=== PATIENT | male | born 1945 | race Caucasian/White ===

== ENCOUNTER 2022-04-03 09:33 | Outpatient (RCR) | payer MEDICARE, BC, SELFPAY | END 2022-04-03 23:59 | disposition home or self-care (01) | PROVIDERS: PCP Family Medicine; Visit Provider Orthopaedic Surgery Sports Medicine | DX: S72.001D Fracture of unspecified part of neck of right femur, subsequent encounter for closed fracture with routine healing (principal); Z51.89 Encounter for other specified aftercare ==

== ENCOUNTER 2023-02-01 10:29 | Outpatient (CLI) | payer MEDICARE, BC, SELFPAY | END 2023-02-01 10:30 | disposition home or self-care (01) | PROVIDERS: PCP Family Medicine; Visit Provider Family Medicine | DX: I10 Essential (primary) hypertension (principal); R79.89 Other specified abnormal findings of blood chemistry; E03.9 Hypothyroidism, unspecified; I48.20 Chronic atrial fibrillation, unspecified; Z13.6 Encounter for screening for cardiovascular disorders | CPT/HCPCS: 80053; 80061; 84439; 84443 ==

== ENCOUNTER 2023-05-26 06:41 | Day surgery (SDC) | payer MEDICARE, BC, SELFPAY ==
[2023-05-26] VITALS (9 sets, daily range): BP systolic 119–137; BP diastolic 70–89; PULSE 59–65; RESP 16–18; TEMP 36.6; O2SAT 98; BMI 23.1
[2023-05-26] MEDS: BUPIVACAINE 0.25% 30 ML INJECTION (08:30)
--- NOTE | 2023-05-26 08:48 | P.GSOP_ITS ---
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 Wide local excision was performed in clinic pathology demonstrating positive deep margins for squamous cell carcinoma and lateral positive margins for basal cell carcinoma. Risks and benefits of repeat excision were discussed at length with the patient. Risks included, but were not limited to: Bleeding, infection, risk of damage to surrounding structures and possible need for additional procedures. All questions and concerns were addressed with patient agreeing to proceed. Procedure Description: After discussing the risks and benefits of the procedure, the patient signed i nformed consent.? The operative site was marked and the patient was brought to the operating room and placed on the operating table in supine position.? Care was taken to pad the patient's pressure points.?? The operative site was then prepped and draped in the usual sterile fashion.? A time-out was then performed. Local anesthetic was used to infiltrate the surgical field. An elliptical incision was made around the previously healed scar. The lesion was then dissected down to subcutaneous tissue and removed in its entirety. The specimen was marked with a short stitch superior and long stitch laterally. Hemostasis was assured with electrocautery. The incision was then closed in layers of interrupted 3-0 Vicryl and running 4-0 Monocryl subcuticular stitch. Steri- Strips were applied. The incision was 7 cm long. ? The patient tolerated the procedure well. Findings: Well-healed scar of the left temporal region, reexcised for margins. Anesthesia: local Surgeon: Geno Weir MD Estimated blood loss (mL): 2 Additional Specimen Information: Skin lesion of the left temporal. Condition: stable Disposition: same day
== END 2023-05-26 09:03 | disposition home or self-care (01) ==
PROVIDERS: PCP Family Medicine; Visit Provider Surgery
PROC: (CPT 11646; principal; 2023-05-26 08:00)
DX: C44.319 Basal cell carcinoma of skin of other parts of face (principal)
CPT/HCPCS: 11646; 12053; 88305; J0665

== ENCOUNTER 2024-03-06 08:17 | Outpatient (CLI) | payer MEDICARE, BC, SELFPAY ==
--- OUTSIDE RECORDS SUMMARY | 2024-03-23 10:12 | XMS_ITS | Clinical Summary ---
Author Organization [facility] Address [place], [place] [address] Care Team Providers Care Gathering Machine Setter Name Role Phone Galindo Palmer MD Primary Care Provider [phone] Allergies No known active allergies Medications Medication Sig Dispensed Refills Start Date End Date Status acetaminophen (TYLENOL EXTRA STRGTH) 500 mg tablet TAKE TWO TABLETS BY MOUTH EVERY SIX HOURS NEEDED (MAXIMUM DAILY DOSE 4000MG) 2 daily on average 01/01/2021 Active Eliquis 5 mg tablet Take 5 mg by mouth 2 times daily. 09/30/2021 Active levothyroxine (SYNTHROID) 75 mcg tablet Take 75 mcg by mouth once daily. 02/23/2023 Active hydroCHLOROthiazide (HCTZ) 25 mg tablet Take 50 mg by mouth once daily. 02/01/2023 Active Active Problems No known active problems Social History Tobacco Use Types Packs/Day Years Used Date Smoking Tobacco: Former Smokeless Tobacco: Never Tobacco Cessation:Counseling Given: Yes Alcohol Use Standard Drinks/Week Comments Yes 0 (1 standard drink = 0.6 oz pur e alcohol) occ Social Connections Answer Date Recorded Frequency of Communication with Friends and Fami ly Not on file 10/17/2021 Financial Resource Strain Answer Date R ecorded Difficulty of Paying Living Expenses Not on file 10/17/2021 Difficulty of Paying Living Expenses Not on file 10/17/2021 Sex and Gender Information Value Date Recorded Sex Assigned at Not on file Gender Identity Not on file Sexual Orientation Not on file Obstetrics History Last Filed Vital Signs Vital Sign Reading Time Taken Comments Blood Pressure 130/76 08/26/2023 3:01 PM HUMAN SERVICES CASE MANAGER Pulse 68 08/26/2023 3:01 PM HUMAN SERVICES CASE MANAGER Temperature 37.2 ??C (98.9 ??F) 11/07/2021 7:54 AM CS T Respiratory Rate 14 11/07/2021 7:54 AM HUMAN SERVICES CASE MANAGER Oxygen Saturation 97% 08/26/2023 3:01 PM HUMAN SERVICES CASE MANAGER Inhaled Oxygen Concentration - - Weight 81.6 kg (180 lb) 08/26/2023 3:01 PM HUMAN SERVICES CASE MANAGER Height 185.4 cm (6' 1) 08/26/2023 3:01 PM HUMAN SERVICES CASE MANAGER Body Mass Index 23.75 08/26/2023 3:01 PM HUMAN SERVICES CASE MANAGER Plan of Treatment Upcoming Encounters Date Type Department Care Team (Late st Contact Info) Description 03/28/2024 2:30 PM CDT Office Visit [facility] [place] [address] [place] [address] Cisco Beth MD [address] [place] [address] 04/03/2024 2:00 PM CDT Office Visit [facility] [address] [place] [address] Armando Sims DPM [address] [place] [address] Health Maintenance Due Date Last Done Comments Tdap 1955 Depression screening for age 12+ 1956 Hepatitis C screening for ag e 18-79 1962 Tetanus booster 1964 Zoster (shingles) series for age 50+ (1 of 2) 1994 Medicare Wellness for age 65+ 2009 Pneumococcal series for age 65+ (1 of 1 - PCV) 2009 Influenza for age 65+ 06/17/2024 BMI (ht and wt on same day) for age 18+ 08/26/2024 08/26/2023, 09/24/2021 COVID-19 vaccine series Completed 08/02/20, 03/04/2023, 07/28/2022, Additional history exists Advance Directives * Full Code (Latest Code Status on File) Date Activated Date Inactivated Comments 11/06/2021 2:07 PM 11/07/2021 12:56 PM Question Answer Comments Code Status Discussion: Not Discussed Care Teams Gathering Machine Setter Relationship Specialty Start Date End Date Galindo Palmer MD [address] [place] [phone] PCP - General Family Practice 03/11/21
== END 2024-03-06 08:18 | disposition home or self-care (01) ==
LOC: NFLDREF 03-23 10:09
PROVIDERS: PCP Family Medicine; Referring Provider Family Medicine; Visit Provider Family Medicine
DX: E03.9 Hypothyroidism, unspecified (principal); I10 Essential (primary) hypertension; D64.9 Anemia, unspecified; C61 Malignant neoplasm of prostate
CPT/HCPCS: 80053; 84443; G0103

== ENCOUNTER 2025-03-22 07:35 | Outpatient (CLI) | payer MEDICARE, BC, SELFPAY | END 2025-03-22 07:36 | disposition home or self-care (01) | LOC: NFLDREF 03-23 10:00 | PROVIDERS: PCP Family Medicine; Referring Provider Family Medicine; Visit Provider Family Medicine | DX: I10 Essential (primary) hypertension (principal); E03.9 Hypothyroidism, unspecified; I48.91 Unspecified atrial fibrillation; Z13.6 Encounter for screening for cardiovascular disorders | CPT/HCPCS: 80053; 80061; 84443 ==

== ENCOUNTER 2025-04-08 10:16 | Outpatient (CLI) | payer MEDICARE, BC, SELFPAY ==
--- NOTE | 2025-04-08 11:17 | P.ANES_ITS ---
Anesthesia Charges Start Date/Time Anesthesia Start Date: 04/08/25 Anesthesia Start Time: 10:53 Stop Date/Time Anesthesia Stop Date: 04/08/25 Anesthesia Stop Time: 11:17 Coding CPT Codes CPT Codes: EDD LWDebra INTST NDSC NOS - [id number] ([id number]) P2 - PATIENT W/MILD SYST DISEASE, QX - WOUND TREATMENT RN SVC W/ MD MED DIRECTION, QK - MUSIC TEACHER 2-4 CNCRNT ANES PROC
--- NOTE | 2025-04-08 11:17 | W.ANESCHARGE ---
Anesthesia Charges Start Date/Time Anesthesia Start Date: 04/08/25 Anesthesia Start Time: 10:53 Stop Date/Time Anesthesia Stop Date: 04/08/25 Anesthesia Stop Time: 11:17 Coding CPT Codes CPT Codes: EDD LWDebra INTST NDSC NOS - [id number] ([id number]) P2 - PATIENT W/MILD SYST DISEASE, QX - SALES AND MARKETING AGENT SVC W/ MD MED DIRECTION, QK - MASTER COASTAL WATERS 2-4 CNCRNT ANES PROC
--- NOTE | 2025-04-08 12:56 | P.ANES_ITS ---
Anesthesia Charges Start Date/Time Anesthesia Start Date: 04/08/25 Anesthesia Start Time: 10:53 Stop Date/Time Anesthesia Stop Date: 04/08/25 Anesthesia Stop Time: 11:17 Summary Extremes of Age - Over 70 or under 1: MDA Coding CPT Codes CPT Codes: ANES LWR INTST NDSC NOS - 62389 ([id number]) P2 - PATIENT W/MILD SYST DISEASE, QK - BAKER 2-4 CNCRNT ANES PROC, QX - DIRECTOR RIVER RESTORATION SVC W/ MD MED DIRECTION Additional Codes: Summary - Extremes of Age - Over 70 or under 1: MDA ([id number])
--- NOTE | 2025-04-08 12:56 | W.ANESCHARGE ---
Anesthesia Charges Start Date/Time Anesthesia Start Date: 04/08/25 Anesthesia Start Time: 10:53 Stop Date/Time Anesthesia Stop Date: 04/08/25 Anesthesia Stop Time: 11:17 Summary Extremes of Age - Over 70 or under 1: MDA Coding CPT Codes CPT Codes: ANES LWR INTST NDSC NOS - [id number] ([id number]) P2 - PATIENT W/MILD SYST DISEASE, QK - STEAM BRUSH OPERATOR 2-4 CNCRNT ANES PROC, QX - CIGARETTE EXAMINER SVC W/ MD MED DIRECTION Additional Codes: Summary - Extremes of Age - Over 70 or under 1: MDA ([id number])
--- OUTSIDE RECORDS SUMMARY | 2025-04-09 01:04 | XMS_ITS ---
Author Name Interface, [id number] lity Address [address] [place] [address] [facility] Address [address] [place] [id number] Allergies and Adverse Reactions Medication/Group Name Reaction Severity Date No known allergies Plan Date Type Value 11/01/2024 APPOINTMENT OV 30 MIN Reason for Visit OV 30 MIN Encounters Date Name 11/01/2024 Basal cell carcinoma of skin (disorder) Medications Date Name Route Dose Frequency Instructions Start Date End Date Status Fluorouracil Topical Cream 5 % active Hydrochlorothiazide Oral active Levothyroxine Oral QD active Miscellaneous Drug 1 QD Eye Promise active Miscellaneous Drug BID H ellocare Advanced vitamins 120-250 mg active Apixaban Oral BID act martínez Problems Diagnosis Status Date of Diagnosis Resolution Date Basal cell carcinoma of skin (disorder) Active Vital Signs Date Type Value 11/01/2024 Height 71.00 11/01/2024 Pain Scale 0.00
--- OUTSIDE RECORDS SUMMARY | 2025-04-09 01:04 | XMS_ITS | CCD ---
Author Name Interface, [id number] lity Address [address] [place] [address] [facility] On[facility] Address [address] [address] Care Team Providers Care Vat House Laborer Name Role Phone Hans HANCOCK, Nadeen Mann labstacy Allergies and Adverse Reactions Medication/Group Name Reaction Severity Date No known allergies Care Plan Date Type Value 11/01/2024 APPOINTMENT OV 30 MIN 08/08/2024 APPOINTMENT POST OP 30 MIN 08/02/2024 APPOINTMENT POST OP 30 MIN 08/02/2024 APPOINTMENT POST OP 30 MIN 07/17/2024 APPOINTMENT SURGERY 1 HR 07/16/2024 APPOINTMENT NEW PT CONSULT 2 0 MIN Reason for Visit OV 30 MIN Encounters Date Name 11/01/2024 Basal cell carcinoma of skin (disorder) Immunizations Date Name Route Dose Instructions Refusal Reason Stat us Covid-19 vaccine (Pfizer) Completed Flu vaccine - Adult Comp leted Medications Date Name Route Dose Frequency Instructions Start Date End Date Status Miscellaneous Drug BID H ellocare Advanced vitamins 120-250 mg active Apixaban Oral BID act martínez Hydrochlorothiazide Oral active Miscellaneous Drug 1 QD Eye Promise active Fluorouracil Topical Cream 5 % active Levothyroxine Oral QD active Problems Diagnosis Status Date of Diagnosis Resolution Date Basal cell carcinoma of skin (disorder) Active Social History Date Name Value 07/13/2024 Smoking Status Former smoker 11/01/2024 Smoking Status Former smoker 07/16/2024 Sex Male Vital Signs Date Type Value 07/16/2024 Intravascular Systolic 134 07/16/2024 Intravascular Diastolic 77 07/16/2024 Pain Scale 0.00 07/16/2024 Oxygen Saturation 99.00 07/16/2024 Respiratory Rate 16.00 07/16/2024 Weight 170.00 07/16/2024 Height 71.00 07/16/2024 BMI 23.71 07/16/2024 BSA 1.97 07/16/2024 Heart Beat 55.00 08/02/2024 Height 71.00 08/02/2024 Pain Scale 0.00 11/01/2024 Height 71.00 11/01/2024 Pain Scale 0.00
--- OUTSIDE RECORDS SUMMARY | 2025-04-09 01:05 | XMS_ITS ---
Author Name Interface, [id number] lity Address [address] [place] [address] Oncology Address [address] [place] [address] Allergies and Adverse Reactions Plan Reason for Visit Encounters Immunizations Medications Problems Vital Signs
--- OUTSIDE RECORDS SUMMARY | 2025-04-09 01:05 | XMS_ITS | Clinical Summary ---
Author Organization [facility] Address [address] [place] [address] Care Team Providers Care Staff Development Educator Name Role Phone Galindo Palmer MD Primary Care Provider [phone] Allergies No known active allergies Medications Eliquis 5 mg tablet Take 5 mg by mouth 2 times daily. 09/30/2021 Active levothyroxine (SYNTHROID) 75 mcg tablet Take 75 mcg by mouth once daily. 02/23/2023 Active polypod leucot ext-niacinamide (Heliocare Advanced) 120-250 mg cap Take 1 Capsule by mouth two times daily. 03/25/2024 Active medication order composer Eye Promise Restore BID 03/28/2024 Active hydroCHLOROthia zide 25 mg tablet Take 25 mg by mouth once daily. 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 [address] [place] [address] Cardiovascular Diagnostic Testing (Ordered by Dr. Beth) 01/07/2025 Travel 01/07/[address] [facility] [address] [facility] [[email or web address] [address] [place] [address] Cisco Beth MD Post Procedure from Last 3 Months Immunizations Immunization Administration Dates Next Due COVID-19 vaccine ([email or web address] 30mcg/0.3mL) P FERROL 11/11/2020,10/21/2020 Social History Tobacco Use Types Packs/Day Years Used Date Smoking Tobacco: Former Cigarettes Smokeless Tobacco: Never Comments:Quit smoking in his 20's Alcohol Use Standard Drinks/Week Comments Yes 0 (1 standard drink = 0.6 oz pur e alcohol) occ Financial Resource Strain Answer Date R ecorded Difficulty of Paying Living Expenses Not on file 10/17/2021 Difficulty of Paying Living Expenses Not on file 10/17/2021 Interpersonal Safety Answer Date Record ed Are you being hit, kicked, p ushed or yelled at (see row info)? No 01/04/2025 Interpersonal Safety Abuse 12 - 18 Not on file 01/04/2025 Interpersonal Safety Ambulatory Vulnerability No t on file 01/04/2025 Sex and Gender Information Value Date Recorded Sex Assigned at Not on file Legal Sex Male 7:59 AM ELECTRICIAN SECOND Gender Identity Not on file Sexual Orientation Not on file Obstetrics History Last Filed Vital Signs Vital Sign Reading Time Taken Comments Blood Pressure 107/60 01/04/2025 2:49 PM CDT Pulse 75 01/04/2025 2:49 PM CDT Temperature 36.2 C (97.2 F) 01/04/2025 2:49 PM CDT Respiratory Rate 18 01/04/2025 7:00 AM CDT Oxygen Saturation 97% 01/04/2025 2:49 PM CDT Inhaled Oxygen Concentration - - Weight 77.1 kg (170 lb) 01/04/2025 7:00 AM CDT Height 185.4 cm (6' 1) 01/04/2025 7:00 AM CDT Body Mass Index 22.43 01/04/2025 7:00 AM CDT Plan of Treatment Upcoming Encounters Date Type Department Care Team (Late st Contact Info) Description 05/14/2025 1:00 PM CDT Orders Only [facility] [address] [place] [address] 05/14/2025 2:00 PM CDT Office Visit [facility] [address] [place] [address] Cisco Beth MD [address] [facility] [[email or web address] [address] [place], [place] [id number] Health Maintenance Due Date Last Done Comments Tdap 1955 Depression screening for age 12+ 1956 Pneumococcal series for age 50+ (1 of 2 - PCV) 1963 Tetanus booster 1964 Zoster (shingles) series for age 50+ (1 of 2) 1994 Medicare Wellness for age 65+ 2009 RSV vaccine for adults or (1 - 1-dose 75+ series) 2019 COVID-19 vaccine series ( season) 2024 06/26/2024, 03/09/2024, 08/02/2023, Additional history exists Influenza Vaccine (Season Ended) 2025 BMI (ht and wt on same day) for age 18+ 10/29/2025 10/29/2024, 03/28/2024, 08/26/2023, Additional history exists Hepatitis B series for 19+ Aged Out N o longer eligible based on patient's age to complete this topic Procedures Procedure Name Priority Date/Time Associated Diagnosis Comments EKG 12 LEAD Routine 01/08/2025 11:06 AM CDT Atrial fibrillation, unspecified type (HC) from Last 3 Months Results * EKG 12 LEAD (01/08/2025 11:06 AM CDT) us Cisco Beth MD EKG ORD Final Resul t from Last 3 Months Insurance BLUE [employer] BLUE MR PB ONLY [employer] [place] BLUE HB ONLY MEDICARE PART B HB ONLY MEDICARE PART A HB ONLY Advance Directives Documents on File Type Date Recorded 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
== END 2025-04-08 10:17 | disposition home or self-care (01) ==
LOC: OP CLINIC 10:18
PROVIDERS: PCP Family Medicine; Visit Provider Internal Medicine
DX: Z12.11 Encounter for screening for malignant neoplasm of colon (principal); D12.5 Benign neoplasm of sigmoid colon; K64.8 Other hemorrhoids
CPT/HCPCS: 00811; 45380; 99100; J2704